=== PATIENT | male | born 1995 | race African-American/Black ===

== ENCOUNTER 2022-01-29 11:14 | Emergency (ER) | payer OTHER, SELFPAY ==
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
[2022-01-29 11:17] VITALS: BP 157/93; PULSE 76; RESP 18; TEMP 36.7; O2SAT 100
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
[2022-01-29] MEDS: KETOROLAC (*BKC) 60 MG/2 ML VIAL IM (13:05)
[2022-01-29 13:25] VITALS: BP 130/62; PULSE 80; RESP 18; O2SAT 99
== END 2022-01-29 13:27 | disposition home or self-care (01) ==
PROVIDERS: Emergency Provider Emergency Medicine
DX: S16.1XXA Strain of muscle, fascia and tendon at neck level, initial encounter (principal); S39.92XA Unspecified injury of lower back, initial encounter; S29.9XXA Unspecified injury of thorax, initial encounter; S09.90XA Unspecified injury of head, initial encounter; V44.5XXA Car driver injured in collision with heavy transport vehicle or bus in traffic accident, initial encounter
CPT/HCPCS: 70450; 71046; 72125; 72128; 72131; 96372; 99284; J1885

== ENCOUNTER 2023-04-26 15:09 | Outpatient (CLI) | payer OTHER, SELFPAY ==
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
--- NOTE | ~2023-04-26 | XR_ITS ---
EXAMINATION: XR wrist RT min 3V DATE: 04/26/2023 15:29 INDICATION: Right wrist tingling. TECHNIQUE: 4 views of right wrist were obtained. COMPARISON: None. FINDINGS: Bone alignment is normal. No fracture. Joint spaces are normal. IMPRESSION: 1. Normal right wrist. Reviewed, dictated and finalized at location A. IMPRESSION: 1. Normal right wrist.
[2023-04-26 16:33] LABS: Basophils Percent Auto 0.1 % (0.2-1.2); Eosinophils Absolute Auto 0.1 K/mm3 (0-0.3); Eosinophils Percent Auto 1.6 % (0-4.4); Hematocrit 44.5 % (42.0-52.0); Hemoglobin 15.1 g/dL (14.0-18.0); Immature Granulocyte Absolute 0.01 K/mm3 (0.00-0.031); Immature Granulocyte Percent A 0.1 % (0-0.5); Lymphocytes Absolute Auto 2.84 K/mm3 (0.9-3.2); Mean Corpuscular HGB Conc 33.9 g/dl (32-36); Mean Corpuscular Hemoglobin 31.4 pg (26-34); Mean Corpuscular Volume 92.5 fl (80-100); Mean Platelet Volume 9.7 fl (7.4-10.4); Monocytes Absolute Auto 0.5 K/mm3 (0.1-0.6); Neutrophils Absolute Auto 3.3 K/mm3 (1.3-6.7); Neutrophils Percent Auto 48.2 % (45.5-73.1); Platelet Count Result 282 k/mm3 (150-375); Red Blood Count 4.81 M/mm3 (4.6-6.20); Red Cell Distribution Width 12.2 % (11.5-14.5); White Blood Count 6.8 K/mm3 (4.5-10.0)
[2023-04-26 16:39] LABS: Alanine Aminotransferase 41 U/L (6-50); Albumin Level 4.7 g/dL (3.5-5.1); Alkaline Phosphatase 53 U/L (38-126); Anion Gap 7 mmol/L (8-16); Aspartate Amino Transferase 32 U/L (17-59); Bilirubin,Total 0.6 mg/dL (0.2-1.3); Blood Urea Nitrogen 10 mg/dL (9-20); Carbon Dioxide 27 mmol/L (22-30); Chloride 106 mmol/L (98-107); Cholesterol 209 mg/dL (0-200); Estimated Glomerular Filt Rate > 60; Glucose 83 mg/dL (65-110); HDL Direct 34 mg/dL; Potassium 3.6 mmol/L (3.4-5.0); Sodium 140 mmol/L (137-145); Triglycerides 163 mg/dL (<150)
[2023-04-26 16:53] LABS: LDL Cholesterol Direct 131 mg/dL
[2023-04-26 17:10] LABS: Creatinine Urine 199.1 mg/dL
[2023-04-26 17:47] LABS: MALB Creatinine Ratio < 3.0 mg/g (0-30); Microalbumin Urine Random < 6.0 mg/L (0-16.7)
[2023-04-26 17:50] LABS: Free T4 Free Thyroxine 0.76 ng/mL (0.78-2.19); Vitamin D 25 Hydroxy 16.4 ng/mL
== END 2023-04-26 15:10 | disposition home or self-care (01) ==
PROVIDERS: PCP Emergency Medicine; Visit Provider Emergency Medicine
DX: F41.9 Anxiety disorder, unspecified (principal); M54.50 Low back pain, unspecified; F32.9 Major depressive disorder, single episode, unspecified; R20.2 Paresthesia of skin
CPT/HCPCS: 36415; 73110; 80053; 80061; 82043; 82306; 82607; 82746; 84439; 84443; 85025